=== PATIENT | male | born 1945 | race Two or more races ===

== ENCOUNTER 2016-11-09 19:00 | Outpatient (CLI) ==
[2016-11-09 19:36] VITALS: BMI 35.1
== END 2016-11-09 19:01 | disposition home or self-care (01) ==
LOC: AMBL 19:00
PROVIDERS: ATTEND Internal Medicine Geriatric Medicine
DX: S09.90XA Unspecified injury of head, initial encounter (principal); R51 Headache; R22.0 Localized swelling, mass and lump, head; W17.89XA Other fall from one level to another, initial encounter

== ENCOUNTER 2016-11-09 19:18 | Emergency (ER) | payer OTHER ==
[2016-11-09] MEDS ORDERED: ZOFRAN 4 MG/2 ML IM STA (19:31)
[2016-11-09] MEDS ORDERED: SODIUM CHLORIDE 1,000 ML IV STA (19:31)
[2016-11-09 19:36] VITALS: BP 119/78; TEMP 97.4; BMI 35.1
[2016-11-09] MEDS ORDERED: ZOFRAN ODT PO STA (19:43)
--- NOTE | 2016-11-09 19:45 | ED.PDOC ---
General ED Provider: Dr. GOPAL DIAS Chief Complaint: Fall Stated Complaint: Patient arrived by ambulace after a fall from a wooden ramp 2- 3 feet, landed on rt occiput with development of a large hematoma. Denies any LOC. Had 2 episode of vomiting after the fall. Time Seen by Physician: 19:45 Nursing and Triage Documentation Reviewed and Agree: Yes Trauma/Injury Complaint Exam - Head Injury Complaint/Exam Location of Pain: Reports: Right, Scalp Mechanism of Injury: Reports: Trauma (fall 2 feet ) Onset/Duration: 30 min Symptoms Are: Resolved Initial Severity: Moderate Current Severity: None Associated Signs and Symptoms: Reports: Nausea, Vomiting. Denies: Confusion, Memory loss, Seizure, Epistaxis, Dental malocclusion, Neck pain Loss of Consciousness: None Related History: Denies: Similar episode, Occupational injury, Anticoagulants Cervical Spine Injury Risk Factors: Present: None Related Surgical History: Reports: None Head Injury Findings: Absent: Hemotympanum, CSF rhinorrhea, Garcia's sign, Racoon eyes, Meningeal signs, Nystagmus Focal Weakness: Present: None Focal Sensory Loss: Present: None Gait: Normal Gag Reflex Present: Yes Finger to Nose: Normal Rhomberg Test Positive: No Babinski Sign: Negative Right, Negative Left Heel to Toe Normal: Yes Nexus Low Risk Criteria: No post-midline CS tender, No evidence of intoxicat., No Altered LOC, No focal neuro deficit, No distracting injuries Head Picture: 1 - 6 cm in diameter raised 2 cm Differential Diagnoses: Cervical Fracture, Intracranial Bleed, Sprain, Strain, Trauma - Truncal Trauma Complaint/Exam Location of Pain: Reports: Left Onset: 30 min Symptoms Are: Still present Mechanism: Reports: Blunt trauma, Fall Associated Signs and Symptoms: Reports: Nausea, Vomiting. Denies: Short of air , Chest pain, Cough, Hematuria, Abdominal pain, Fever Immobilization Removed Post Exam: No Vertebral Tenderness Present: No Vertebral Deformity Present: No Trachial Deviation Present: No JVD Present: No Crepitus Present: No Diminished Breath Sounds: No Reproducible Pain at: left hand and elbow. Muffled Heart Sounds Present: No Paradoxical Chest Wall Movement Present: No Abdominal Guarding Present: No Abdominal Rigidity Present: No Referred Shoulder Pain (Kehr's Sign) Present: No Skin Findings: Present: Abrasion, Tenderness - Trauma Complaint/Exam Location of Pain or Injury: Reports: [facility] STEWART Mechanism of Injury: Reports: Fall Onset/Duration: 30 min Symptoms Are: Still present Timing of Treatment: Immediate Initial Severity: Moderate Current Severity: Mild Character: Reports: Aching Aggravating: Reports: Movement Alleviating: Reports: Rest Associated Signs and Symptoms: Reports: Bleeding, Bruising, Swelling. Denies: LOC, Confusion, Memory loss, Lethargy, Vomiting, Extremity disuse, Painful respiration, Hoarseness, Dysphagia, Hemoptysis, Significant blood loss Related History: Denies: Similar episode, Alcohol abuse, Drug abuse, Alleged assault, Anticoagulants, Occupational injury EMS Interventions: Absent: C-spine immobilization, Backboard applied, Intubated , Needle Decompression per., Vascular access obtained Glascow Coma Scale (see protocol): 15 Trauma Findings: Absent: Racoon eyes Skin Findings: Present: Abrasion, Hematoma Differential Diagnoses: Contusions, Fracture Review of Systems - Review Of Systems Constitutional: Reports: No symptoms Eyes: Reports: No symptoms Ears, Nose, Mouth, Throat: Reports: No symptoms Respiratory: Reports: No symptoms Cardiac: Reports: No symptoms GI: Reports: No symptoms : Reports: No symptoms Musculoskeletal: Reports: Back pain, Muscle pain Skin: Reports: Bruising Neurological: Reports: Anxiety Endocrine: Reports: No symptoms Hematologic/Lymphatic: Reports: Easy bruising All Other Systems: Reviewed and Negative Past Medical History - Past Medical History Endocrine: Reports: DM 1, Dyslipidemia Cardiovascular: Reports: Hypertension Respiratory: Reports: None Hematological: Reports: None Gastrointestinal: Reports: None Genitourinary: Reports: None Neuro/Psych: Reports: Anxiety, Depression Musculoskeletal: Reports: None Cancer: Reports: Other (Prostate cancer ) - Surgical History General Surgical History: Reports: Other ([place] ) - Family History Family History: Reports: Unknown Physical Exam - Physical Exam Appearance: Ill-appearing Ill-appearing: Severe Pain Distress: Moderate (headache) Eyes: EDDIE, EOMI, Conjunctiva clear ENT: Ears normal, Nose normal, Oropharynx normal Neck: Supple Respiratory: Airway patent, Breath sounds clear, Breath sounds equal, Respirations nonlabored Cardiovascular: Tachycardia Musculoskeletal: Limited ROM Skin: Warm, Dry Neurological: Sensation intact, Motor intact, Cranial nerves intact, Alert, Oriented Psychiatric: Anxious Interpretation - Radiology Interpretation Radiology Interpretation By: Radiologist Radiology Results: Positive Exam Interpreted: CT Scan (Head with Left sided Subdural hematoma Measuring 7 mm with 3mm left shift, Right pariental scalp hematoma ) Re-Evaluation - Re-Evaluation Time of Re-Evaluation: 21:30 Status: Improved Vital Signs Stable: Yes (P 118, R 20, BP 98/61) Physician Notification - Case Discussed Physician Notified: Dr Tong Time of Notification: 20:40 Critical Care Note - Critical Care Note Total Time (mins): 30 Course - Course Orders, Labs, Meds: Orders Category Date Time Status ED IV/MEDIPORT/POWERPORT .ONCE EMERGENCY 11/09/16 19:31 Inactive Acetaminophen [Tylenol] MEDS 11/09/16 20:50 Discontinued 1,000 mg PO ONCE STA Ondansetron [Zofran Odt] MEDS 11/09/16 19:43 Discontinued 4 mg PO ONCE STA CT CERVICAL SPINE W/O CONTRAST Stat RADS 11/09/16 19:[address] HEAD W/O CONTRAST Stat RADS 11/09/16 19:23 Completed Medications Discontinued Medications Generic Name Dose Route Start Last Admin Trade Name Freq PRN Reason Stop Dose Admin Acetaminophen 1,000 mg 11/09/16 20:50 11/09/16 21:07 Tylenol PO 11/09/16 20:51 1,000 mg ONCE STA Administration Ondansetron HCl 4 mg 11/09/16 19:43 11/09/16 19:51 Zofran Odt PO 11/09/16 19:44 4 mg ONCE STA Administration Vital Signs: Temp Pulse Resp BP Pulse Ox 11/09/16 19:20 97.4 F L 128 H 20 119/78 98 Departure - Departure Time of Disposition: 21:45 Disposition: TSF SHORT-TRM HOSP Discharge Problem: Subdural hematoma, Midline shift of brain due to hematoma Condition: Serious Pt referred to PMD for follow-up: Yes Allergies/Adverse Reactions: Allergies No Known Allergies Allergy (Unverified 11/09/16 19:36) Home Medications: Ambulatory Orders Esomeprazole Magnesium [Nexium 24Hr] 22.3 mg PO DAILY 11/09/16 Fesoterodine Fumarate [Toviaz] 4 mg PO DAILY 11/09/16 Finasteride [Proscar] 5 mg PO DAILY 11/09/16 Furosemide [Lasix] 20 mg PO BID 11/09/16 Metformin HCl [Metformin HCl ER] 500 mg PO BID 11/09/16 Metoprolol Succinate [Toprol Xl] 50 mg PO DAILY 11/09/16 Naproxen [Naprosyn] 500 mg PO BID 11/09/16 Oxycodone-Acetaminophe 7.5-325 [Percocet 7.5-325] 1 tab PO Q4H PRN 11/09/16 Potassium Chloride [Klor-Con 10] 10 meq PO DAILY 11/09/16 Temazepam [Restoril] 30 mg PO BEDTIME 11/09/16 Pt. Stabilized Within Hospital's Capabilities/Transferred To: [facility] Form Completed: Yes Disposition Discussed With: Patient, Family
--- NOTE | 2016-11-09 20:32 | CT ---
EXAM: CT head without intravenous contrast 11/09/2016. Sagittal and coronal reformatted images obt ained HISTORY: Fall. Trauma COMPARISON: None. FINDINGS: Right parietal scalp hematoma. Left-sided frontal, parietal and temporal subdural hemato ma. This measures up to 7 mm thickness. There is approximately 3 mm midline shift. Mild generalized atrophy and chronic small vessel ischemic changes. No cerebellar tonsillar ectopia. The calvarium appears intact without fracture. IMPRESSION: 1. Left sided subdural hematoma measures up to 7 mm thickness. 2. Right parietal scalp hematoma. 3. Approximately 3 mm midline shift. Critical FINDINGS: I personally discussed these findings with Dr. Salcedo, 11/09/2016, 8:25 p.m
--- NOTE | 2016-11-09 20:33 | CT ---
EXAM: CT cervical spine without contrast. HISTORY: Initial presentation for neck trauma due to a fall. COMPARISON: None available. TECHNIQUE: Multiple axial images of the cervical spine were obtained without intravenous contrast. Images were reformatted in the sagittal and coronal planes. FINDINGS: There is straightening of the normal lordosis in the upper cervical spine. Less than 0.2 cm anterolisthesis of C4 on C5 noted. Alignment is otherwise normal. The bones are demineralized with scattered sclerotic lesions throughout virtually all visualized osseous structures. No acute f racture identified. Disc osteophyte formation causes mild central canal stenosis from C4-5 through C6-7, along with uncovertebral hypertrophy and facet arthropathy cause multilevel neural foraminal n arrowing, severe at C4-5 on the left and mild to moderate at additional levels. Paravertebral soft tissues are without acute abnormality. Polypoid soft tissue seen in the right maxillary sinus. Ath erosclerotic calcifications are present. Lung apices are clear. Left-sided chest port is present. IMPRESSION: 1. No acute cervical spine fracture. 2. Numerous sclerotic foci throughout the bones, suspicious for metastatic disease.
[2016-11-09] MEDS ORDERED: TYLENOL PO STA (20:50)
== END 2016-11-09 21:55 | disposition short-term general hospital (02) ==
LOC: ED 19:18
DX: S06.5X0A Traumatic subdural hemorrhage without loss of consciousness, initial encounter (principal); R11.2 Nausea with vomiting, unspecified; M79.642 Pain in left hand; M25.522 Pain in left elbow; M79.601 Pain in right arm; M54.9 Dorsalgia, unspecified; T14.8 Other injury of unspecified body region; E10.9 Type 1 diabetes mellitus without complications; E78.5 Hyperlipidemia, unspecified; I10 Essential (primary) hypertension; Z79.899 Other long term (current) drug therapy; W17.89XA Other fall from one level to another, initial encounter
CPT/HCPCS: 99285